=== PATIENT | male | born 1960 | race Caucasian/White ===

== ENCOUNTER 2016-05-07 18:53 | Emergency (ER) | payer OTHER ==
[~2016-05-07] VITALS: Ht 170.2 cm; Wt 92.2 kg
[2016-05-07 18:59] VITALS: TEMP 36.6; Ht 170.2 cm; Wt 92.2 kg
[2016-05-07 20:37] LABS: HEMATOCRIT 40.2 % (42-52); MEAN CELL VOLUME 84.8 fL (80-100); MEAN CORPUSCULAR HEMOGLOBIN 30.2 pg (25-34); MEAN CORPUSCULAR HGB CONC 35.6 g/dl (32-36); MEAN PLATELET VOLUME 10.3 fL (7.4-10.4); PLATELET COUNT 238 K/uL (130-400); RED BLOOD COUNT 4.74 M/uL (4.7-6.1); WHITE BLOOD COUNT 7.33 K/uL (4.8-10.8)
[2016-05-07 20:49] LABS: PARTIAL THROMBOPLASTIN RATIO 1.1; PROTHROMBIN TIME (PATIENT) 10.4 SECONDS (9.0-12.0)
--- NOTE | 2016-05-07 20:51 | DIAGNOSTIC IMAGING REPORT ---
TWO VIEW CHEST CLINICAL HISTORY: Atypical chest pain. FINDINGS: PA and lateral chest radiographs are obtained. No prior studies are available for comparison at the time of dictation. The cardiomediastinal silhouette is unremarkable. The lungs and pleural spaces are clear. There is no pneumothorax. The bony thorax appears intact. IMPRESSION: No active disease in the chest. Electronically signed by: Priyank Casarez M.D. 05/07/2016 8:49 PM Dictated Date/Time: 05/07/2016 8:48 PM
--- NOTE | 2016-05-07 20:57 | EMERGENCY ROOM VISIT NOTE ---
History First contact with patient: 19:37 Chief Complaint: CHEST PAIN Stated Complaint: CHEST PAIN Nursing Triage Summary: Pt complains of chest "pulsating" and heaviness since last night. Hx HTN History of Present Illness The patient is a 55 year old male who presents to the Emergency Room with complaints of left chest twitching. He noticed the twitching last night. He was at rest. It was in his left pectoral region. Denies any pain, but notes the slightest pressure. Symptoms were not associated with exertion. Twitching resolved on its own. Last night when it happened, he was able to fall asleep with it. Today he was driving on the road and noticed it return, and persisted for 45 minutes so he decided to come to the ED for further evaluation. During these episode, he denies palpitations, orthopnea, nocturnal dyspnea, swelling or pleuritic pain. He denies SOB, coughing, wheezing or URI symptoms. He has no nausea, vomiting diarrhea or constipation. He has been urinating without any difficulty No fevers, nightsweats or chills. Appetite has been good. He notes a history of HTN for which he was previously on Metoprolol but discontinued treatment 1 year ago as his BPs were excellent without it. He has a cuff but has not been checking it since and is surprised that it is high today. He also has high cholesterol for which he takes odette seeds. He does note a stress test at an outside hospital 2 years ago, which was normal. 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 Past Medical/Surgical History HTN Hypercholesterolemia ANDREAS Family History Father has HTN Mother had cardiac catheterization at 75 Social History Smoking Status: Current Some Day Smoker (20 pack year; smokes 1 pack per week) Smokeless Tobacco Use: No Alcohol Use: occasionally (12 beers/week) Drug Use: none Marital Status: in relationship Housing Status: lives alone Occupation Status: employed (truck chauffeur) Current/Historical Medications No Active Prescriptions or Reported Meds Allergies Coded Allergies: No Known Allergies (Unverified , 05/07/16) Physical Exam Vital Signs Date Time Temp Pulse Resp B/P Pulse Ox O2 Delivery O2 Flow Rate FiO2 05/07/16 21:30 67 24 170/106 97 Room Air 05/07/16 21:10 73 05/07/16 20:05 72 20 157/100 97 Room Air 05/07/16 20:05 75 16 157/100 96 Room Air 05/07/16 18:59 36.6 89 16 189/112 95 Room Air Physical Exam Constitutional: Vital signs as above were reviewed. Eyes: Pupils equal, round, and reactive to light. Extraocular muscles are intact. No proptosis. No photophobia. ENT: Mucous membranes are moist. Oropharynx is clear. No sinus tenderness. TMs are clear bilaterally. Cardiovascular: Heart with a regular rate and rhythm. Pulses are palpable and symmetric in all 4 extremities. No pedal edema appreciated. Pectoral fasciculations noted; mild and self-terminating Left palpable pectoral tenderness, mild Respiratory: Lungs clear to auscultation bilaterally. No wheezes, rales, or rhonchi appreciated. No accessory muscle use. No retractions. No increased work of breathing. GI: Abdomen soft, nontender, nondistended. Normal active bowel sounds. No abdominal hernias appreciated. No rebound. No guarding. : No CVA tenderness appreciated. Musculoskeletal: No midline cervical or vertebral tenderness. No gross deformities. No bony tenderness. No calf swelling or tenderness. Integumentary: Warm, dry, no rashes appreciated. Neurological: Patient awake, alert, and oriented x 3. Cranial nerves two through 12 grossly intact. Motor 5 out of 5 strength bilateral upper and lower extremities. Lymph: No cervical lymphadenopathy appreciated. Medical Decision & Procedures ER Provider Diagnostic Interpretation: CT ANGIOGRAM OF THE CHEST CLINICAL HISTORY: Atypical chest pain. COMPARISON STUDY: Chest x-ray dated 05/07/2016. TECHNIQUE: Following the IV administration of 102 cc of Optiray 320, CT angiogram of the chest was performed from the upper abdomen to the thoracic inlet utilizing the pulmonary embolus protocol. Images are reviewed in the axial, sagittal, and coronal planes. 3-D MIPS images are created and assessed. IV contrast was administered without complication. CT DOSE: 559.78 mGy.cm FINDINGS: Thyroid: Imaged portions of the thyroid gland are normal in size and attenuation. Thoracic aorta: The thoracic aorta is normal in caliber and demonstrates standard 3-vessel arch anatomy. No dissection is seen. Pulmonary vasculature: The pulmonary trunk is normal in caliber. There are no filling defects identified in main, lobar, or segmental pulmonary branches to suggest pulmonary embolus. Heart: The heart is top normal in size and without pericardial effusion. Lungs and pleural spaces: There is a 3 mm right lower lobe pulmonary nodule seen image #98. No airspace consolidation or pleural effusion is identified. The trachea and central airways are clear. Mediastinum: There is no mediastinal lymphadenopathy. Sanam: Clear. Axillae: There is no axillary lymphadenopathy. Upper abdomen: A small hiatal hernia is identified. There is evidence of hepatic steatosis. Partially visualized upper abdominal viscera is within normal limits. Skeletal structures: Mild degenerative change is noted throughout the thoracic spine. Arthritic change is also shown in the shoulders. No lytic or blastic bony lesions are seen. IMPRESSION: 1. There is no evidence of pulmonary embolus in the main, lobar, or segmental pulmonary arteries. 2. There is no airspace consolidation or pleural effusion. 3. There is a 3 mm right lower lobe pulmonary nodule. This can be followed if clinically warranted as per the Fleischner criteria. See below. 4. Hepatic steatosis. Please refer to below summary of Fleischner criteria recommendations for follow-up of incidental CT nodules ([facility], Guidelines for management of small pulmonary nodules detected on CT scans: A statement from the Fleischner Society, Radiology 237: [id number].) Low Risk Patient: Minimal or no smoking or other known risk factors for malignancy <=4 mm: No follow-up needed. >4-6 mm: Initial follow-up CT at 12 months; if unchanged, no further follow-up. >6-8 mm: Initial follow-up CT at 6-12 months then at 18-24 months if no change. >8 mm: Follow-up CT at \\R\\3, 9, 24 months, or PET and/or biopsy. High Risk Patient: History of smoking or other known risk factors <=4 mm: Follow-up at 12 months; if unchanged, no further follow-up. >4-6 mm: Initial follow-up CT at 6-12 months then at 18-24 months if no change. >6-8 mm: Initial follow-up CT at 3-6 months then at 9-12 and 24 months if no change. >8 mm: Same as low risk patient. Note: Nodule size measured as average of length and width. Ground glass or partly solid nodules may require longer follow-up to exclude indolent adenocarcinoma. Electronically signed by: Priyank Casarez M.D. 05/07/2016 9:52 PM Dictated Date/Time: 05/07/2016 9:47 PM Laboratory Results 05/07/16 20:18 05/07/16 20:18 Test 05/07/16 20:18 05/07/16 20:23 Red Blood Count 4.74 M/uL (4.7-6.1) Mean Corpuscular Volume 84.8 fL (80-100) Mean Corpuscular Hemoglobin 30.2 pg (25-34) Mean Corpuscular Hemoglobin Concent 35.6 g/dl (32-36) RDW Standard Deviation 38.8 fL (36.4-46.3) RDW Coefficient of Variation 12.7 % (11.5-14.5) Mean Platelet Volume 10.3 fL (7.4-10.4) Prothrombin Time 10.4 SECONDS (9.0-12.0) Prothromb Time International Ratio 1.0 (0.9-1.1) Activated Partial Thromboplast Time 28.6 SECONDS (21.0-31.0) Partial Thromboplastin Ratio 1.1 Anion Gap 12.0 mmol/L (3-11) Est Creatinine Clear Calc Drug Dose 91.4 ml/min Estimated GFR () 98.5 Estimated GFR (Non- 84.9 BUN/Creatinine Ratio 19.1 (10-20) Calcium Level 9.6 mg/dl (8.5-10.1) Total Bilirubin 0.7 mg/dl (0.2-1) Aspartate Amino Transf (AST/SGOT) 29 U/L (15-37) Alanine Aminotransferase (ALT/SGPT) 45 U/L (12-78) Alkaline Phosphatase 90 U/L (45-117) Total Creatine Kinase 211 U/L (39-308) Creatine Kinase MB 1.5 ng/ml (0.5-3.6) Creatine Kinase MB Ratio 0.7 (0-3.0) Troponin I < 0.015 ng/ml (0-0.045) Total Protein 8.1 gm/dl (6.4-8.2) Albumin 4.2 gm/dl (3.4-5.0) Globulin 3.9 gm/dl (2.5-4.0) Albumin/Globulin Ratio 1.1 (0.9-2) Bedside D-Dimer > 450 ng/mlFEU (0-450) Bedside Troponin I 0.010 ng/ml (0-0.045) ED Course 19:40 - Patient seen and evaluated Orders placed: CBC, CMP, Troponin, CK, CKMB, EKG and PA CXR 20:35 - Reviewed case with Dr. Valderrama EKG NSR, rate 79 20:40 - CXR pending D-dimer elevated 21:00 - CTPE ordered Re-evaluated, doing well Cardiac enzymes are WNL 22:00 - CT reviewed; No pulmonary embolus CXR: no acute process CBC, CMP both WNL 22:15 - Discussed CT results with patient; needs follow-up for pulmonary nodule ; otherwise normal Patient agrees to discharge and close PCP follow-up Discharged in stable condition Medical Decision Patient is a pleasant 55 year old gentleman who presents with chest wall pain. He has cardiac risk factors including smoking, HTN and hypercholesterolemia History was obtained, exam performed and EMR reviewed (no prior records) Differential includes: Transient fasciculations, ACS, Myocarditis, Percarditis, aortic dissection, Pneumonia, PE, Pneumothorax. Based on age, gender and type of pain (non-anginal), he presents with intermediate pre-test probability for underlying coronary artery disease. Cardiac enzymes x 1 were negative; EKG was reviewed and was NSR Chest x-ray was negative for acute process. D-dimer was positive. Follow-up CTPE was negative. Patient has transient muscle fasciculations of his left pectoral tenderness secondary to pushing his left pectoral muscle manually. Lab evaluation in the ED was completely normal and quality of the symptoms were completely non- cardiac but given risk factors, an initial work-up was warranted, which is fortunately normal. There were no indications to admit patient. Incidentally patient has a lung nodule that will require follow-up CT in 1 year ; patient was made aware of this and will follow-up with primary care provider locally. Patient was discharged in stable condition. Impression Primary Impression: Chest wall pain Ruled Out: Acute myocardial infarction, Pulmonary embolism Departure Information Dispostion Home / Self-Care Condition GOOD Prescriptions No Active Prescriptions or Reported Meds Referrals No Doctor, Assigned (PCP) Patient Instructions My [facility] Additional Instructions You came to the ED for twitching in your chest. Although unlikely, given your history of high blood pressure and high cholesterol, we felt ruling out a heart attack was warranted. We checked a heart tracking (EKG) and chest x-ray which were both normal. We did a chest x-ray which was completely normal. We check bloodwork to determine if there is heart muscle damage and there is none. 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 We did a CT scan on your chest, which did not reveal a clot. If was noted on the chest x-ray that you have a nodule on the right side. These are most often benign and do not grow but do require a follow-up CT, in your case likely within 1 year. The cause for the muscle twitching in your chest is unclear but is mostly likely completely benign and will resolve on its own. As you go home, you can return to your regular activities. If you develop chest pain that is pressure-like, worsens with exertion and improves with rest, you need to see a physician immediately. Otherwise, please see your primary care provider in 3-5 days to ensure that your symptoms continue to improve. We will give you a copy of your records to bring home with you, including the CT report. It was a pleasure to be involved in your care and we wish you all the best.
[2016-05-07] MEDS ORDERED: OPTIRAY 320 IV PRN (21:00)
[2016-05-07 21:15] LABS: ALT/SGPT 45 U/L (12-78); BLOOD UREA NITROGEN 19 mg/dl (7-18); BUN/CREATININE RATIO 19.1 (10-20); CALCIUM 9.6 mg/dl (8.5-10.1); CARBON DIOXIDE 28 mmol/L (21-32); CHLORIDE 101 mmol/L (98-107); GLUCOSE 83 mg/dl (70-99); POTASSIUM 4.1 mmol/L (3.5-5.1); SODIUM 141 mmol/L (136-145)
[2016-05-07 21:19] LABS: ALB/GLOB RATIO 1.1 (0.9-2); ALKALINE PHOSPHATASE 90 U/L (45-117); AST/SGOT 29 U/L (15-37); CKMB/CK RATIO 0.7 (0-3.0)
--- NOTE | 2016-05-07 21:53 | DIAGNOSTIC IMAGING REPORT ---
CT ANGIOGRAM OF THE CHEST CLINICAL HISTORY: Atypical chest pain. COMPARISON STUDY: Chest x-ray dated 05/07/2016. TECHNIQUE: Following the IV administration of 102 cc of Optiray 320, CT angiogram of the chest was performed from the upper abdomen to the thoracic inlet utilizing the pulmonary embolus protocol. Images are reviewed in the axial, sagittal, and coronal planes. 3-D MIPS images are created and assessed. IV contrast was administered without complication. CT DOSE: 559.78 mGy.cm FINDINGS: Thyroid: Imaged portions of the thyroid gland are normal in size and attenuation. Thoracic aorta: The thoracic aorta is normal in caliber and demonstrates standard 3-vessel arch anatomy. No dissection is seen. Pulmonary vasculature: The pulmonary trunk is normal in caliber. There are no filling defects identified in main, lobar, or segmental pulmonary branches to suggest pulmonary embolus. Heart: The heart is top normal in size and without pericardial effusion. Lungs and pleural spaces: There is a 3 mm right lower lobe pulmonary nodule seen image #98. No airspace consolidation or pleural effusion is identified. The trachea and central airways are clear. Mediastinum: There is no mediastinal lymphadenopathy. Sanam: Clear. Axillae: There is no axillary lymphadenopathy. Upper abdomen: A small hiatal hernia is identified. There is evidence of hepatic steatosis. Partially visualized upper abdominal viscera is within normal limits. Skeletal structures: Mild degenerative change is noted throughout the thoracic spine. Arthritic change is also shown in the shoulders. No lytic or blastic bony lesions are seen. IMPRESSION: 1. There is no evidence of pulmonary embolus in the main, lobar, or segmental pulmonary arteries. 2. There is no airspace consolidation or pleural effusion. 3. There is a 3 mm right lower lobe pulmonary nodule. This can be followed if clinically warranted as per the Fleischner criteria. See below. 4. Hepatic steatosis. Please refer to below summary of Fleischner criteria recommendations for follow-up of incidental CT nodules ([facility], Guidelines for management of small pulmonary nodules detected on CT scans: A statement from the Fleischner Society, Radiology 237: [phone].) Low Risk Patient: Minimal or no smoking or other known risk factors for malignancy <=4 mm: No follow-up needed. >4-6 mm: Initial follow-up CT at 12 months; if unchanged, no further follow-up. >6-8 mm: Initial follow-up CT at 6-12 months then at 18-24 months if no change. >8 mm: Follow-up CT at \R\3, 9, 24 months, or PET and/or biopsy. High Risk Patient: History of smoking or other known risk factors <=4 mm: Follow-up at 12 months; if unchanged, no further follow-up. >4-6 mm: Initial follow-up CT at 6-12 months then at 18-24 months if no change. >6-8 mm: Initial follow-up CT at 3-6 months then at 9-12 and 24 months if no change. >8 mm: Same as low risk patient. Note: Nodule size measured as average of length and width. Ground glass or partly solid nodules may require longer follow-up to exclude indolent adenocarcinoma. Electronically signed by: Priyank Casarez M.D. 05/07/2016 9:52 PM Dictated Date/Time: 05/07/2016 9:47 PM
[2016-05-07 22:40] VITALS: BP 169/117; PULSE 76; O2SAT 96
--- NOTE | 2016-05-08 01:56 | EMERGENCY ROOM VISIT NOTE ---
History Report prepared by Baltazar: Virginia Mayer Under the Supervision of: Dr. Junior Valderrama M.D. First contact with patient: 19:37 Chief Complaint: CHEST PAIN Stated Complaint: CHEST PAIN Nursing Triage Summary: Pt complains of chest "pulsating" and heaviness since last night. Hx HTN History of Present Illness The patient is a 55 year old male who presents to the Emergency Room with complaints of 2 episodes of left sided chest twitching that began last evening. 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 He notes that he did not have any chest pain until he started to rub the area to try and make it stop. At that point, he developed some chest soreness. Currently, he has slight soreness to the left side of his chest where the twitching is present. The patient has a history of hypertension and was put on Metoprolol, but did not follow up with his doctor and did not have a refill for his prescription, so he stopped taking it about a year ago because his blood pressure had improved. He also had a history of high cholesterol which has improved significantly after he started eating odette seeds. 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 Denies diaphoresis, shortness of breath, leg swelling or pain, or other complaints. He had a stress test at a different hospital 2 years ago which was normal. No personal history of diabetes. Source of History: patient Onset: last night Position: chest Quality: other (twitching) Timing: other (episodic) Associated Symptoms: + chest pain (soreness from rubbing), No SOB, No diaphoresis Review of Systems See HPI for pertinent positives & negatives. A total of 10 systems reviewed and were otherwise negative. Past Medical & Surgical Medical Problems: (1) HTN (hypertension) (2) Hyperlipidemia Family History No pertinent family history stated. Social History Smoking Status: Current Some Day Smoker Marital Status: single Occupation Status: employed Current/Historical Medications No Active Prescriptions or Reported Meds Allergies Coded Allergies: No Known Allergies (Unverified , 05/07/16) Physical Exam Vital Signs Date Time Temp Pulse Resp B/P Pulse Ox O2 Delivery O2 Flow Rate FiO2 05/07/16 22:40 76 20 169/117 96 05/07/16 21:30 67 24 170/106 97 Room Air 05/07/16 21:10 73 05/07/16 20:05 72 20 157/100 97 Room Air 05/07/16 20:05 75 16 157/100 96 Room Air 05/07/16 18:59 36.6 89 16 189/112 95 Room Air Physical Exam Constitutional: Vital signs reviewed. Eyes: Pupils are equal round reactive to light. Conjunctiva are noninjected. ENT: Pharynx is clear without erythema or exudate. Mucous membranes are moist. Neck supple without meningeal signs. Respiratory: Clear to auscultation bilaterally. Breath sounds are equal bilaterally. Cardiovascular: Regular rate and rhythm. No rubs or gallops. GI: Soft, nondistended and nontender. Bowel sounds are present. Musculoskeletal: Left chest wall spasm and tenderness to palpation. No peripheral edema. No lower extremity tenderness. Integumentary: No cyanosis. Neurological: The patient is awake and alert. No focal deficits. Psychiatric: Normal affect. Medical Decision & Procedures ER Provider Diagnostic Interpretation: X-ray results as stated below per interpretation by me and the radiologist. Other radiology results as stated below per my review and the radiologist's interpretation: TWO VIEW CHEST CLINICAL HISTORY: Atypical chest pain. FINDINGS: PA and lateral chest radiographs are obtained. No prior studies are available for comparison at the time of dictation. The cardiomediastinal silhouette is unremarkable. The lungs and pleural spaces are clear. There is no pneumothorax. The bony thorax appears intact. IMPRESSION: No active disease in the chest. Electronically signed by: Priyank Casarez M.D. 05/07/2016 8:49 PM Dictated Date/Time: 05/07/2016 8:[address] ANGIOGRAM OF THE CHEST CLINICAL HISTORY: Atypical chest pain. COMPARISON STUDY: Chest x-ray dated 05/07/2016. TECHNIQUE: Following the IV administration of 102 cc of Optiray 320, CT angiogram of the chest was performed from the upper abdomen to the thoracic inlet utilizing the pulmonary embolus protocol. Images are reviewed in the axial, sagittal, and coronal planes. 3-D MIPS images are created and assessed. IV contrast was administered without complication. CT DOSE: 559.78 mGy.cm FINDINGS: Thyroid: Imaged portions of the thyroid gland are normal in size and attenuation. Thoracic aorta: The thoracic aorta is normal in caliber and demonstrates standard 3-vessel arch anatomy. No dissection is seen. Pulmonary vasculature: The pulmonary trunk is normal in caliber. There are no filling defects identified in main, lobar, or segmental pulmonary branches to suggest pulmonary embolus. Heart: The heart is top normal in size and without pericardial effusion. Lungs and pleural spaces: There is a 3 mm right lower lobe pulmonary nodule seen image #98. No airspace consolidation or pleural effusion is identified. The trachea and central airways are clear. Mediastinum: There is no mediastinal lymphadenopathy. Sanam: Clear. Axillae: There is no axillary lymphadenopathy. Upper abdomen: A small hiatal hernia is identified. There is evidence of hepatic steatosis. Partially visualized upper abdominal viscera is within normal limits. Skeletal structures: Mild degenerative change is noted throughout the thoracic spine. Arthritic change is also shown in the shoulders. No lytic or blastic bony lesions are seen. IMPRESSION: 1. There is no evidence of pulmonary embolus in the main, lobar, or segmental pulmonary arteries. 2. There is no airspace consolidation or pleural effusion. 3. There is a 3 mm right lower lobe pulmonary nodule. This can be followed if clinically warranted as per the Fleischner criteria. See below. 4. Hepatic steatosis. Please refer to below summary of Fleischner criteria recommendations for follow-up of incidental CT nodules ([place], Guidelines for management of small pulmonary nodules detected on CT scans: A statement from the Fleischner Society, Radiology 237: [phone].) Low Risk Patient: Minimal or no smoking or other known risk factors for malignancy <=4 mm: No follow-up needed. >4-6 mm: Initial follow-up CT at 12 months; if unchanged, no further follow-up. >6-8 mm: Initial follow-up CT at 6-12 months then at 18-24 months if no change. >8 mm: Follow-up CT at \\R\\3, 9, 24 months, or PET and/or biopsy. High Risk Patient: History of smoking or other known risk factors <=4 mm: Follow-up at 12 months; if unchanged, no further follow-up. >4-6 mm: Initial follow-up CT at 6-12 months then at 18-24 months if no change. >6-8 mm: Initial follow-up CT at 3-6 months then at 9-12 and 24 months if no change. >8 mm: Same as low risk patient. Note: Nodule size measured as average of length and width. Ground glass or partly solid nodules may require longer follow-up to exclude indolent adenocarcinoma. Electronically signed by: Priyank Casarez M.D. 05/07/2016 9:52 PM Dictated Date/Time: 05/07/2016 9:47 PM Laboratory Results 05/07/16 20:18 05/07/16 20:18 Test 05/07/16 20:18 05/07/16 20:23 Red Blood Count 4.74 M/uL (4.7-6.1) Mean Corpuscular Volume 84.8 fL (80-100) Mean Corpuscular Hemoglobin 30.2 pg (25-34) Mean Corpuscular Hemoglobin Concent 35.6 g/dl (32-36) RDW Standard Deviation 38.8 fL (36.4-46.3) RDW Coefficient of Variation 12.7 % (11.5-14.5) Mean Platelet Volume 10.3 fL (7.4-10.4) Prothrombin Time 10.4 SECONDS (9.0-12.0) Prothromb Time International Ratio 1.0 (0.9-1.1) Activated Partial Thromboplast Time 28.6 SECONDS (21.0-31.0) Partial Thromboplastin Ratio 1.1 Anion Gap 12.0 mmol/L (3-11) Est Creatinine Clear Calc Drug Dose 91.4 ml/min Estimated GFR () 98.5 Estimated GFR (Non- 84.9 BUN/Creatinine Ratio 19.1 (10-20) Calcium Level 9.6 mg/dl (8.5-10.1) Total Bilirubin 0.7 mg/dl (0.2-1) Aspartate Amino Transf (AST/SGOT) 29 U/L (15-37) Alanine Aminotransferase (ALT/SGPT) 45 U/L (12-78) Alkaline Phosphatase 90 U/L (45-117) Total Creatine Kinase 211 U/L (39-308) Creatine Kinase MB 1.5 ng/ml (0.5-3.6) Creatine Kinase MB Ratio 0.7 (0-3.0) Troponin I < 0.015 ng/ml (0-0.045) Total Protein 8.1 gm/dl (6.4-8.2) Albumin 4.2 gm/dl (3.4-5.0) Globulin 3.9 gm/dl (2.5-4.0) Albumin/Globulin Ratio 1.1 (0.9-2) Bedside D-Dimer > 450 ng/mlFEU (0-450) Bedside Troponin I 0.010 ng/ml (0-0.045) Laboratory results as reviewed by me. ECG Indication: chest pain Rate (beats per minute): 79 Rhythm: normal sinus Findings: no acute ischemic change, no ectopy ED Course 2047: The patient was evaluated in room B6. A complete history and physical exam was performed. 2204: The patient was resting comfortably at reassessment. Results were discussed with him. He agreed with the plan. The patient was discharged home. Medical Decision This is a 55-year-old male presents with left-sided chest discomfort. Differential diagnosis includes muscle spasm, pulmonary embolism, MD, GERD, pneumothorax. I did perform a limited focused review of portions of the patient 's old chart on the electronic medical record. The patient has had no prior visits to this hospital. I did evaluate the patient as noted above. The patient is presenting with twitching to the muscles of his left chest. It is visible on examination. He has spasm of the pectoralis muscle. He states that he has some discomfort there as he has been pushing on it and it is tender to palpation. IV access was established. The patient was placed on a continuous residential monitor. I did order and personally review the patient's 12-lead EKG and chest x-ray as described above. I did order and review the patient's blood work as noted in the electronic medical record. His d-dimer is elevated. He is a truck body repairer. I did order a CT of the chest. I did review the images myself as well as the radiology report as described above. There is no evidence of pulmonary embolism. The patient was informed of his test results. He was advised follow closely with his doctor. He was discharged in good condition. Resident Physician Supervision Note: I did evaluate and examine this patient myself. I did guide management for the patient. I agree with the resident's (Dr. Charles) assessment as discussed. Please see the resident's dictation for further details. Impression Primary Impression: Left sided chest pain Additional Impression: Lung nodule Scribe Attestation The scribe's documentation has been prepared under my direct and personally reviewed by me in its entirety. I confirm that the note above accurately reflects all work, treatment, procedures, and medical decision making performed by me. Departure Information Dispostion Home / Self-Care Prescriptions No Active Prescriptions or Reported Meds Referrals No Doctor, Assigned (PCP) Patient Instructions My [facility] Additional Instructions You came to the ED for twitching in your chest. Although unlikely, given your history of high blood pressure and high cholesterol, we felt ruling out a heart attack was warranted. We checked a heart tracking (EKG) and chest x-ray which were both normal. We did a chest x-ray which was completely normal. We check bloodwork to determine if there is heart muscle damage and there is none. 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 We did a CT scan on your chest, which did not reveal a clot. If was noted on the chest x-ray that you have a nodule on the right side. These are most often benign and do not grow but do require a follow-up CT, in your case likely within 1 year. The cause for the muscle twitching in your chest is unclear but is mostly likely completely benign and will resolve on its own. As you go home, you can return to your regular activities. If you develop chest pain that is pressure-like, worsens with exertion and improves with rest, you need to see a physician immediately. Otherwise, please see your primary care provider in 3-5 days to ensure that your symptoms continue to improve. We will give you a copy of your records to bring home with you, including the CT report. It was a pleasure to be involved in your care and we wish you all the best. Problem Qualifiers
== END 2016-05-07 22:40 | disposition home or self-care (01) ==
LOC: C.EDB 18:56
DX: R07.9 Chest pain, unspecified (principal); R91.1 Solitary pulmonary nodule; F17.200 Nicotine dependence, unspecified, uncomplicated; I10 Essential (primary) hypertension; E78.5 Hyperlipidemia, unspecified